=== PATIENT | male | born 2005 ===

== ENCOUNTER 2024-02-17 21:50 | Emergency (ER) | payer SELFPAY ==
[2024-02-17 23:05] LABS: BASOPHILS PERCENT AUTO 0.5 % (0.0-1.0); HEMATOCRIT 49.8 % (40.0-54.0); HEMOGLOBIN 16.7 g/dL (14.0-18.0); LYMPHOCYTES PERCENT AUTO 7.5 % (20.5-50.1); MEAN CORPUSCULAR HEMOGLOBIN 27.6 pg (27.0-34.0); MEAN CORPUSCULAR HGB CONC 33.5 g/dL (33.0-35.0); MEAN CORPUSCULAR VOLUME 82.5 fL (80-100); MONOCYTES PERCENT AUTO 5.3 % (2-8); NEUTROPHILS PERCENT AUTO 86.7 % (42.2-75.2); PLATELET COUNT,PLT 478 10^3/uL (150-450); RED BLOOD CELL COUNT 6.04 10^6/uL (4.6-6.2); WHITE BLOOD CELL COUNT,WBC 16.7 10^3/uL (5.0-10.0)
[2024-02-17] MEDS: Ondansetron 4 MG/2 ML SDV IVPUSH ONE (23:09)
[2024-02-17] MEDS: Sodium Chloride 0.9% 1,000 ML IV ONE (23:09)
[2024-02-17 23:31] LABS: A/G RATIO 0.9; ALANINE AMINOTRANSFERASE,ALT 60 U/L (16-63); ALKALINE PHOSPHATASE 249 U/L (46-116); ANION GAP 33.8 mEq/L (7-13); ASPARTATE AMNIOTRANSFERASE,AST 18 U/L (15-37); BILIRUBIN TOTAL 0.6 mg/dL (0.2-1.0); BLOOD UREA NITROGEN,BUN 15 mg/dL (7-18); BUN/CREATININE RATIO 8.3 (No establ ref range); CALCIUM 9.9 mg/dL (8.5-10.1); CARBON DIOXIDE,CO2 10 mmol/L (21-32); CHLORIDE,CL 96 mmol/L (98-107); EST CRCL DRUG DOSING (CG) 73.98 mL/min; LIPASE 19 U/L (16-77); MAGNESIUM 2.7 mg/dL (1.8-2.4); POTASSIUM,K 4.8 mmol/L (3.5-5.1); PROTEIN TOTAL,TP 10.5 g/dL (6.4-8.2); SODIUM,NA 135 mmol/L (136-145)
[2024-02-17 23:33] LABS: ESTIMATED GFR 55 mL/min (>=60); ETHANOL BLOOD MEDICAL < 3 mg/dL (0); GLUCOSE RANDOM 588 mg/dL (70-99)
[2024-02-18 00:11] LABS: AMPHETAMINES,URINE NEGATIVE (NEGATIVE); BARBITURATES,URINE NEGATIVE (NEGATIVE); BENZODIAZEPINE,URINE NEGATIVE (NEGATIVE); MDMA (ECSTASY), URINE NEGATIVE (NEGATIVE); METHADONE,URINE NEGATIVE (NEGATIVE); METHAMPHETAMINES,URINE NEGATIVE (NEGATIVE); OPIATES,URINE NEGATIVE (NEGATIVE); OXYCODONE,URINE NEGATIVE (NEGATIVE); PHENCYCLIDINE,URINE NEGATIVE (NEGATIVE); TCA,URINE NEGATIVE (NEGATIVE)
[2024-02-18 00:12] LABS: APPEARANCE,URINE CLEAR (CLEAR); BILIRUBIN,URINE SMALL (NEGATIVE); COLOR,URINE YELLOW (YELLOW); GLUCOSE,URINE 500 (NEGATIVE); KETONES,URINE >=160 (NEGATIVE); LEUKOCYTE ESTERASE,URINE NEGATIVE (NEGATIVE); NITRITE,URINE NEGATIVE (NEGATIVE); OCCULT BLOOD,URINE TRACE-INTACT (NEGATIVE); PH,URINE 5.5 (5.0-9.0); PROTEIN,URINE 30 (NEGATIVE); UROBILINOGEN,URINE 0.2 mg/dL (0.2-1.0)
[2024-02-18] MEDS ORDERED: 50% Dextrose in Water 50 ML Syringe IVPUSH PRN ×2 (00:15→01:14)
[2024-02-18] MEDS ORDERED: Glucagon,Human Recombinant 1 MG Vial IM PRN ×2 (00:15→01:14)
[2024-02-18] MEDS: Sodium Chloride 0.9% 1,000 ML IV ONE (00:18)
[2024-02-18 00:33] LABS: BASE EXCESS VENOUS -20.9 mmol/l ((-2)-(+3)); BICARBONATE,VENOUS 8 mmol/l (19-25); O2 DELIVERY DEVICE PARTIAL REBREATHER; O2 SATURATION VENOUS 33.5 % (60-80); PCO2 VENOUS 27 mmHg (41-51); PO2 VENOUS 24 mmHg (35-42)
[2024-02-18 00:35] LABS: PH,VENOUS 7.11 (7.31-7.41)
[2024-02-18 00:43] LABS: BACTERIA,URINE RARE /HPF (0-FEW/HPF); EPITHELIAL CELLS,URINE RARE /HPF (NOT SEEN); MUCUS,URINE FEW /LPF (NOT SEEN); RBC,URINE 0-5 /HPF (0-5); WBC,URINE NOT SEEN /HPF (0-5/HPF)
[2024-02-18] MEDS: Insulin Regular, Human 100 Units/ML 3 ML Vial IV ONE (00:49)
[2024-02-18 00:57] LABS: CORONAVIRUS COVID-19 NAA NEGATIVE (NEGATIVE); INFLUENZA A NAA NEGATIVE (NEGATIVE); INFLUENZA B NAA NEGATIVE (NEGATIVE); RESPIRATORY SYNCYTIAL VIR NAA NEGATIVE (NEGATIVE)
[2024-02-18] MEDS: Sodium Chloride 0.9% 2,000 ML IV ONE (02:08)
== END 2024-02-18 06:35 ==
LOC: DL.ED 21:50
DX: E11.10 Type 2 diabetes mellitus with ketoacidosis without coma (principal); Z86.16 Personal history of COVID-19
CPT/HCPCS: 0241U; 36415; 80053; 80305-QW; 80307; 81001; 82009; 82803; 82947; 83690; 83735; 85025; 96361; 96374; 99285; 99285-25; J1815-GY; J2405; J7030

== ENCOUNTER 2024-06-30 15:15 | Inpatient (IN) | payer MEDICAID ==
[2024-06-30] MEDS ORDERED: Sodium Chloride 0.9% 10 ML Syringe FLUSH PRN (15:39)
[2024-06-30] MEDS: Sodium Chloride 0.9% 10 ML Syringe FLUSH PRN (15:45)
[2024-06-30 15:47] LABS: BASOPHILS PERCENT AUTO 0.4 % (0.0-1.0); EOSINOPHILS PERCENT AUTO 0.2 % (1.0-3.0); HEMATOCRIT 50.5 % (40.0-54.0); HEMOGLOBIN 17.2 g/dL (14.0-18.0); LYMPHOCYTES PERCENT AUTO 18.6 % (20.5-50.1); MEAN CORPUSCULAR HEMOGLOBIN 28.9 pg (27.0-34.0); MEAN CORPUSCULAR HGB CONC 34.1 g/dL (33.0-35.0); MEAN CORPUSCULAR VOLUME 84.7 fL (80-100); MONOCYTES PERCENT AUTO 8.9 % (2-8); NEUTROPHILS PERCENT AUTO 71.9 % (42.2-75.2); PLATELET COUNT,PLT 326 10^3/uL (150-450); RED BLOOD CELL COUNT 5.96 10^6/uL (4.6-6.2); WHITE BLOOD CELL COUNT,WBC 9.4 10^3/uL (5.0-10.0)
[2024-06-30] MEDS: Sodium Chloride 0.9% 2,000 ML IV SCH (16:00)
[2024-06-30 16:18] LABS: INR 0.9 (0.9-1.2); PROTHROMBIN TIME 9.9 SEC (9.0-12.0)
[2024-06-30 16:21] LABS: A/G RATIO 0.7; ALANINE AMINOTRANSFERASE,ALT 27 U/L (16-63); ALBUMIN 4.2 g/dL (3.4-5.0); ALKALINE PHOSPHATASE 315 U/L (46-116); ANION GAP 35.2 mEq/L (7-13); ASPARTATE AMNIOTRANSFERASE,AST 15 U/L (15-37); BILIRUBIN TOTAL 0.6 mg/dL (0.2-1.0); BLOOD UREA NITROGEN,BUN 11 mg/dL (7-18); BUN/CREATININE RATIO 8.8 (No establ ref range); CHLORIDE,CL 101 mmol/L (98-107); CREATININE 1.25 mg/dL (0.70-1.30); EST CRCL DRUG DOSING (CG) 96.52 mL/min; GLUCOSE RANDOM 380 mg/dL (70-99); POTASSIUM,K 4.2 mmol/L (3.5-5.1); PROTEIN TOTAL,TP 9.9 g/dL (6.4-8.2); SODIUM,NA 139 mmol/L (136-145)
[2024-06-30 16:22] LABS: KETONES,BLOOD MODERATE-40 mg/dL
[2024-06-30 16:23] LABS: ESTIMATED GFR 84 mL/min (>=60)
[2024-06-30 16:24] LABS: CARBON DIOXIDE,CO2 7 mmol/L (21-32)
[2024-06-30] MEDS ORDERED: 50% Dextrose in Water 50 ML Syringe IVPUSH PRN (16:45)
[2024-06-30] MEDS ORDERED: Glucagon,Human Recombinant 1 MG Vial IM PRN (16:45)
[2024-06-30] MEDS: Dextrose 5%-0.9% NaCl 500 ML IV SCH (17:15)
[2024-06-30] MEDS ORDERED: Docusate Sodium 100 MG Cap PO PRN (19:08)
[2024-06-30] MEDS ORDERED: Polyethylene Glycol 3350 Powder 17 GM Packet PO PRN (19:08)
[2024-06-30] MEDS ORDERED: Ondansetron 4 MG/2 ML SDV IVPUSH PRN (19:08)
[2024-06-30] MEDS ORDERED: Sennosides/Docusate Sodium 50-8.6 MG Tab PO PRN (19:08)
[2024-06-30] MEDS ORDERED: Acetaminophen 325 MG Tab PO PRN (19:08)
[2024-06-30] MEDS ORDERED: Melatonin 3 MG Tab PO PRN (19:08)
[2024-06-30 19:25] LABS: O2 DELIVERY DEVICE ROOM AIR; O2 SATURATION VENOUS 68.6 % (60-80); PCO2 VENOUS 25 mmHg (41-51); PO2 VENOUS 41 mmHg (35-42)
[2024-06-30 19:26] LABS: BASE EXCESS VENOUS -19 mmol/l ((-2)-(+3)); BICARBONATE,VENOUS 9 mmol/l (19-25)
[2024-06-30 19:28] LABS: PH,VENOUS 7.17 (7.31-7.41)
[2024-06-30 19:43] LABS: ANION GAP 28.1 mEq/L (7-13); CALCIUM 9.2 mg/dL (8.5-10.1); CREATININE 1.08 mg/dL (0.70-1.30); EST CRCL DRUG DOSING (CG) 111.72 mL/min; POTASSIUM,K 3.1 mmol/L (3.5-5.1)
[2024-06-30 19:49] LABS: HEMOGLOBIN A1C 12.2 % (<5.7)
[2024-06-30] MEDS: Potassium Chloride 20 MEQ in Premix Bag 1 BAG IV ONE ×2 (20:17→23:40)
[2024-06-30] MEDS ORDERED: D5 1/2 NS w/ 10 mEq/L KCl 1,000 ML IV SCH (20:45)
[2024-06-30 21:09] LABS: O2 DELIVERY DEVICE ROOM AIR
[2024-06-30 21:11] LABS: BASE EXCESS VENOUS -19.4 mmol/l ((-2)-(+3)); BICARBONATE,VENOUS 8 mmol/l (19-25); O2 SATURATION VENOUS 95.3 % (60-80); PCO2 VENOUS 22 mmHg (41-51); PO2 VENOUS 81 mmHg (35-42)
[2024-06-30 21:14] LABS: PH,VENOUS 7.18 (7.31-7.41)
[2024-06-30] MEDS ORDERED: Dextrose 5%-0.45% NaCl 1,000 ML IV SCH (21:30)
[2024-06-30 21:37] LABS: ANION GAP 24.4 mEq/L (7-13); CALCIUM 8.8 mg/dL (8.5-10.1); CREATININE 0.99 mg/dL (0.70-1.30); EST CRCL DRUG DOSING (CG) 121.87 mL/min; POTASSIUM,K 3.4 mmol/L (3.5-5.1)
[2024-06-30 23:20] LABS: ANION GAP 23.2 mEq/L (7-13); CALCIUM 8.4 mg/dL (8.5-10.1); CREATININE 1.03 mg/dL (0.70-1.30); EST CRCL DRUG DOSING (CG) 117.14 mL/min; POTASSIUM,K 3.2 mmol/L (3.5-5.1)
[2024-06-30] MEDS: Lactated Ringers 1,000 ML IV SCH (23:40)
[2024-07-01 01:13] LABS: ANION GAP 24.2 mEq/L (7-13); CALCIUM 8.7 mg/dL (8.5-10.1); CREATININE 1.09 mg/dL (0.70-1.30); EST CRCL DRUG DOSING (CG) 110.69 mL/min; POTASSIUM,K 3.2 mmol/L (3.5-5.1)
[2024-07-01] MEDS: Potassium Chloride 20 MEQ in Premix Bag 1 BAG IV ONE ×2 (02:10→04:57)
[2024-07-01] MEDS: Potassium Chloride 10 MEQ in Premix Bag 1 BAG IV ONE (03:27)
[2024-07-01 03:36] LABS: ANION GAP 23.3 mEq/L (7-13); CALCIUM 8.4 mg/dL (8.5-10.1); CREATININE 0.94 mg/dL (0.70-1.30); EST CRCL DRUG DOSING (CG) 128.35 mL/min; POTASSIUM,K 3.3 mmol/L (3.5-5.1)
[2024-07-01 05:22] LABS: APPEARANCE,URINE CLEAR (CLEAR); BILIRUBIN,URINE MODERATE (NEGATIVE); COLOR,URINE YELLOW (YELLOW); GLUCOSE,URINE 500 (NEGATIVE); KETONES,URINE 80 (NEGATIVE); LEUKOCYTE ESTERASE,URINE NEGATIVE (NEGATIVE); NITRITE,URINE NEGATIVE (NEGATIVE); OCCULT BLOOD,URINE NEGATIVE (NEGATIVE); PROTEIN,URINE 100 (NEGATIVE); UROBILINOGEN,URINE 0.2 mg/dL (0.2-1.0)
[2024-07-01 05:27] LABS: BACTERIA,URINE RARE /HPF (0-FEW/HPF); EPITHELIAL CELLS,URINE RARE /HPF (NOT SEEN); RBC,URINE 0-5 /HPF (0-5); WBC,URINE 0-5 /HPF (0-5/HPF)
[2024-07-01 07:00] LABS: BASOPHILS PERCENT AUTO 0.4 % (0.0-1.0); EOSINOPHILS PERCENT AUTO 2.1 % (1.0-3.0); HEMATOCRIT 40.3 % (40.0-54.0); HEMOGLOBIN 13.6 g/dL (14.0-18.0); MEAN CORPUSCULAR HEMOGLOBIN 28.8 pg (27.0-34.0); MEAN CORPUSCULAR HGB CONC 33.7 g/dL (33.0-35.0); MEAN CORPUSCULAR VOLUME 85.2 fL (80-100); NEUTROPHILS PERCENT AUTO 56.5 % (42.2-75.2); PLATELET COUNT,PLT 310 10^3/uL (150-450); RED BLOOD CELL COUNT 4.73 10^6/uL (4.6-6.2); WHITE BLOOD CELL COUNT,WBC 7.7 10^3/uL (5.0-10.0)
[2024-07-01 07:16] LABS: A/G RATIO 0.75; BILIRUBIN TOTAL 0.5 mg/dL (0.2-1.0); BUN/CREATININE RATIO 5.2 (No establ ref range); CALCIUM 8.8 mg/dL (8.5-10.1); CREATININE 0.97 mg/dL (0.70-1.30); EST CRCL DRUG DOSING (CG) 124.38 mL/min; MAGNESIUM 1.8 mg/dL (1.8-2.4)
[2024-07-01 07:25] LABS: O2 DELIVERY DEVICE ROOM AIR
[2024-07-01 07:29] LABS: BICARBONATE,VENOUS 11 mmol/l (19-25); O2 SATURATION VENOUS 87.7 % (60-80); PCO2 VENOUS 26 mmHg (41-51); PO2 VENOUS 55 mmHg (35-42)
[2024-07-01 07:32] LABS: PH,VENOUS 7.24 (7.31-7.41)
[2024-07-01 07:41] LABS: ANION GAP 26.1 mEq/L (7-13); CALCIUM 8.4 mg/dL (8.5-10.1); CREATININE 0.92 mg/dL (0.70-1.30); EST CRCL DRUG DOSING (CG) 131.14 mL/min; POTASSIUM,K 3.1 mmol/L (3.5-5.1)
[2024-07-01] MEDS: Potassium Chloride 10 MEQ Tab.ER PO SCH (08:14)
[2024-07-01] MEDS: FLUoxetine 10 MG Cap PO SCH (08:14)
[2024-07-01] MEDS: cefTRIAXone 1 GM Vial IVPUSH SCH (08:15)
[2024-07-01] MEDS: Potassium Chloride 10 MEQ Tab.ER PO ONE ×3 (09:04→10:30)
[2024-07-01] MEDS: Insulin Glarg,Human.Rec.Analog 100 Unit/ML 10 ML Vial SUBCUT ONE ×2 (09:04→13:53)
[2024-07-01 09:32] LABS: ANION GAP 26.1 mEq/L (7-13); CALCIUM 8.4 mg/dL (8.5-10.1); CREATININE 0.94 mg/dL (0.70-1.30); EST CRCL DRUG DOSING (CG) 128.35 mL/min; POTASSIUM,K 3.1 mmol/L (3.5-5.1)
[2024-07-01 11:24] LABS: ANION GAP 24.4 mEq/L (7-13); CALCIUM 8.5 mg/dL (8.5-10.1); CREATININE 0.89 mg/dL (0.70-1.30); EST CRCL DRUG DOSING (CG) 135.56 mL/min; POTASSIUM,K 3.4 mmol/L (3.5-5.1)
[2024-07-01] MEDS: NS with KCl 40mEq 1,000 ML IV SCH (11:46)
[2024-07-01 13:21] LABS: ANION GAP 21.7 mEq/L (7-13); CALCIUM 8.4 mg/dL (8.5-10.1); CREATININE 0.9 mg/dL (0.70-1.30); EST CRCL DRUG DOSING (CG) 134.06 mL/min; POTASSIUM,K 3.7 mmol/L (3.5-5.1)
[2024-07-01] MEDS: Azithromycin 500 MG in Sodium Chloride 0.9% 250 ML IV SCH (13:53)
[2024-07-01 15:40] LABS: ANION GAP 19.1 mEq/L (7-13); CALCIUM 8.3 mg/dL (8.5-10.1); CREATININE 0.87 mg/dL (0.70-1.30); EST CRCL DRUG DOSING (CG) 138.68 mL/min; POTASSIUM,K 3.1 mmol/L (3.5-5.1)
[2024-07-01] MEDS: Insulin Lispro 100 Units/ML 3 ML Vial SUBCUT SCH (16:45)
[2024-07-01] MEDS: Insulin Glarg,Human.Rec.Analog 100 Unit/ML 10 ML Vial SUBCUT SCH (21:19)
[2024-07-02 06:45] LABS: BASOPHILS PERCENT AUTO 0.4 % (0.0-1.0); EOSINOPHILS PERCENT AUTO 2.1 % (1.0-3.0); HEMATOCRIT 39.6 % (40.0-54.0); HEMOGLOBIN 13.8 g/dL (14.0-18.0); LYMPHOCYTES PERCENT AUTO 33.1 % (20.5-50.1); MEAN CORPUSCULAR HEMOGLOBIN 29.1 pg (27.0-34.0); MEAN CORPUSCULAR HGB CONC 34.8 g/dL (33.0-35.0); MEAN CORPUSCULAR VOLUME 83.4 fL (80-100); MONOCYTES PERCENT AUTO 9.3 % (2-8); NEUTROPHILS PERCENT AUTO 55.1 % (42.2-75.2); PLATELET COUNT,PLT 293 10^3/uL (150-450); RED BLOOD CELL COUNT 4.75 10^6/uL (4.6-6.2); WHITE BLOOD CELL COUNT,WBC 5.7 10^3/uL (5.0-10.0)
[2024-07-02 07:03] LABS: A/G RATIO 0.78; ALBUMIN 3.1 g/dL (3.4-5.0); ANION GAP 23.7 mEq/L (7-13); BILIRUBIN TOTAL 0.5 mg/dL (0.2-1.0); BUN/CREATININE RATIO 4.7 (No establ ref range); CALCIUM 8.6 mg/dL (8.5-10.1); CREATININE 0.86 mg/dL (0.70-1.30); EST CRCL DRUG DOSING (CG) 140.29 mL/min; MAGNESIUM 1.6 mg/dL (1.8-2.4); POTASSIUM,K 2.7 mmol/L (3.5-5.1); PROTEIN TOTAL,TP 7.1 g/dL (6.4-8.2)
[2024-07-02] MEDS: Potassium Chloride 10 MEQ Tab.ER PO SCH ×2 (08:47→18:33)
[2024-07-02] MEDS: Magnesium Oxide 400 MG Tab PO SCH (08:47)
[2024-07-02] MEDS: Insulin Glarg,Human.Rec.Analog 100 Unit/ML 10 ML Vial SUBCUT SCH (12:01)
[2024-07-02] MEDS: Azithromycin 250 MG Tab PO SCH (15:06)
[2024-07-02 15:09] LABS: O2 DELIVERY DEVICE ROOM AIR
[2024-07-02 15:11] LABS: BASE EXCESS VENOUS -2.9 mmol/l ((-2)-(+3)); BICARBONATE,VENOUS 21 mmol/l (19-25); O2 SATURATION VENOUS 93.8 % (60-80); PCO2 VENOUS 37 mmHg (41-51); PH,VENOUS 7.38 (7.31-7.41); PO2 VENOUS 70 mmHg (35-42)
[2024-07-02 15:26] LABS: CALCIUM 8.6 mg/dL (8.5-10.1); CREATININE 1.03 mg/dL (0.70-1.30); EST CRCL DRUG DOSING (CG) 117.14 mL/min
[2024-07-03 07:27] LABS: A/G RATIO 0.78; ALBUMIN 3.1 g/dL (3.4-5.0); ANION GAP 18.5 mEq/L (7-13); BILIRUBIN TOTAL 0.4 mg/dL (0.2-1.0); BUN/CREATININE RATIO 6.2 (No establ ref range); CALCIUM 8.8 mg/dL (8.5-10.1); CREATININE 0.81 mg/dL (0.70-1.30); EST CRCL DRUG DOSING (CG) 148.95 mL/min; POTASSIUM,K 3.5 mmol/L (3.5-5.1); PROTEIN TOTAL,TP 7.1 g/dL (6.4-8.2)
[2024-07-03 07:44] LABS: BASOPHILS PERCENT AUTO 0.4 % (0.0-1.0); EOSINOPHILS PERCENT AUTO 2.6 % (1.0-3.0); HEMATOCRIT 38.8 % (40.0-54.0); HEMOGLOBIN 13.4 g/dL (14.0-18.0); LYMPHOCYTES PERCENT AUTO 32.5 % (20.5-50.1); MEAN CORPUSCULAR HGB CONC 34.5 g/dL (33.0-35.0); MONOCYTES PERCENT AUTO 12.2 % (2-8); NEUTROPHILS PERCENT AUTO 52.3 % (42.2-75.2); PLATELET COUNT,PLT 290 10^3/uL (150-450); RED BLOOD CELL COUNT 4.62 10^6/uL (4.6-6.2)
[2024-07-03] MEDS: Insulin Glarg,Human.Rec.Analog 100 Unit/ML 10 ML Vial SUBCUT SCH (09:33)
[2024-07-03] MEDS: Potassium Chloride 10 MEQ Tab.ER PO SCH (09:35)
[2024-07-04 07:03] LABS: BASOPHILS PERCENT AUTO 0.6 % (0.0-1.0); HEMATOCRIT 37.8 % (40.0-54.0); HEMOGLOBIN 13.1 g/dL (14.0-18.0); LYMPHOCYTES PERCENT AUTO 33.2 % (20.5-50.1); MEAN CORPUSCULAR HEMOGLOBIN 29.4 pg (27.0-34.0); MEAN CORPUSCULAR HGB CONC 34.7 g/dL (33.0-35.0); MEAN CORPUSCULAR VOLUME 84.9 fL (80-100); MONOCYTES PERCENT AUTO 10.9 % (2-8); NEUTROPHILS PERCENT AUTO 51.3 % (42.2-75.2); PLATELET COUNT,PLT 259 10^3/uL (150-450); RED BLOOD CELL COUNT 4.45 10^6/uL (4.6-6.2)
[2024-07-04 07:16] LABS: ALBUMIN 2.7 g/dL (3.4-5.0); ANION GAP 14.3 mEq/L (7-13); BILIRUBIN TOTAL 0.2 mg/dL (0.2-1.0); BUN/CREATININE RATIO 13.8 (No establ ref range); CALCIUM 8.7 mg/dL (8.5-10.1); CREATININE 0.58 mg/dL (0.70-1.30); EST CRCL DRUG DOSING (CG) 208.02 mL/min; POTASSIUM,K 3.3 mmol/L (3.5-5.1); PROTEIN TOTAL,TP 6.4 g/dL (6.4-8.2)
[2024-07-04 07:19] LABS: A/G RATIO 0.73
[2024-07-04] MEDS: Potassium Chloride 10 MEQ Tab.ER PO SCH (08:11)
[2024-07-04] MEDS: Insulin Glarg,Human.Rec.Analog 100 Unit/ML 10 ML Vial SUBCUT ONE (08:15)
== END 2024-07-04 09:30 | disposition home or self-care (01) | DRG 639 ==
LOC: DL.ED 15:15 → DL.MS 18:35
PROVIDERS: ADMIT Internal Medicine; ATTEND Internal Medicine
DX: E10.10 Type 1 diabetes mellitus with ketoacidosis without coma (principal); F41.9 Anxiety disorder, unspecified; F32.A Depression, unspecified; J06.9 Acute upper respiratory infection, unspecified; E87.6 Hypokalemia; E83.42 Hypomagnesemia; E88.09 Other disorders of plasma-protein metabolism, not elsewhere classified; R79.89 Other specified abnormal findings of blood chemistry; Z86.16 Personal history of COVID-19; Z91.199 Patient's noncompliance with other medical treatment and regimen due to unspecified reason
CPT/HCPCS: 36415; 71045; 80048; 80053; 81001; 82009; 82800; 82803; 82947; 83036; 83735; 84100; 84132; 84484; 85025; 85610; 93005; 93010; 96360; 96361; 99223; 99232; 99233; 99238; 99285-25; 99291; A9270-GY; J0456; J0696; J1815-GY; J3480; J7030; J7042; J7050; J7120

== ENCOUNTER 2024-08-31 18:26 | Emergency (ER) | payer MEDICAID ==
[2024-08-31 19:02] LABS: BASOPHILS PERCENT AUTO 0.5 % (0.0-1.0); EOSINOPHILS PERCENT AUTO 0.1 % (1.0-3.0); HEMATOCRIT 48.2 % (40.0-54.0); HEMOGLOBIN 15.9 g/dL (14.0-18.0); MEAN CORPUSCULAR HEMOGLOBIN 28.8 pg (27.0-34.0); MEAN CORPUSCULAR VOLUME 87.2 fL (80-100); MONOCYTES PERCENT AUTO 4.6 % (2-8); NEUTROPHILS PERCENT AUTO 88.8 % (42.2-75.2); PLATELET COUNT,PLT 391 10^3/uL (150-450); RED BLOOD CELL COUNT 5.53 10^6/uL (4.6-6.2); WHITE BLOOD CELL COUNT,WBC 15.1 10^3/uL (5.0-10.0)
[2024-08-31 19:05] LABS: BICARBONATE,VENOUS 22 mmol/l (19-25); O2 DELIVERY DEVICE ROOM AIR; O2 SATURATION VENOUS 38.8 % (60-80); PCO2 VENOUS 44 mmHg (41-51); PH,VENOUS 7.32 (7.31-7.41); PO2 VENOUS 29 mmHg (35-42)
[2024-08-31 19:06] LABS: BASE EXCESS VENOUS -4 mmol/l ((-2)-(+3))
[2024-08-31] MEDS: Sodium Chloride 0.9% 1,000 ML IV ONE (19:10)
[2024-08-31 19:27] LABS: A/G RATIO 0.9; ALANINE AMINOTRANSFERASE,ALT 24 U/L (16-63); ALBUMIN 4.4 g/dL (3.4-5.0); ALKALINE PHOSPHATASE 189 U/L (46-116); ANION GAP 17.7 mEq/L (7-13); ASPARTATE AMNIOTRANSFERASE,AST 21 U/L (15-37); BILIRUBIN TOTAL 0.5 mg/dL (0.2-1.0); BLOOD UREA NITROGEN,BUN 13 mg/dL (7-18); CARBON DIOXIDE,CO2 25 mmol/L (21-32); CHLORIDE,CL 103 mmol/L (98-107); CREATININE 0.81 mg/dL (0.70-1.30); GLUCOSE RANDOM 156 mg/dL (70-99); POTASSIUM,K 3.7 mmol/L (3.5-5.1); PROTEIN TOTAL,TP 9.3 g/dL (6.4-8.2); SODIUM,NA 142 mmol/L (136-145)
[2024-08-31 19:36] LABS: ESTIMATED GFR 129 mL/min (>=60)
[2024-08-31 20:05] LABS: APPEARANCE,URINE CLEAR (CLEAR); BILIRUBIN,URINE MODERATE (NEGATIVE); COLOR,URINE YELLOW (YELLOW); GLUCOSE,URINE NEGATIVE (NEGATIVE); KETONES,URINE 80 (NEGATIVE); LEUKOCYTE ESTERASE,URINE NEGATIVE (NEGATIVE); NITRITE,URINE NEGATIVE (NEGATIVE); OCCULT BLOOD,URINE NEGATIVE (NEGATIVE); PROTEIN,URINE 100 (NEGATIVE); UROBILINOGEN,URINE 0.2 mg/dL (0.2-1.0)
[2024-08-31 20:27] LABS: BACTERIA,URINE FEW /HPF (0-FEW/HPF); EPITHELIAL CELLS,URINE FEW /HPF (NOT SEEN); RBC,URINE 0-5 /HPF (0-5); WBC,URINE 0-5 /HPF (0-5/HPF)
[2024-08-31 20:28] LABS: HYALINE CASTS,URINE FEW; MUCUS,URINE MANY /LPF (NOT SEEN)
== END 2024-08-31 20:20 | disposition home or self-care (01) ==
LOC: DL.ED 18:26
DX: R10.13 Epigastric pain (principal); E10.9 Type 1 diabetes mellitus without complications; Z79.4 Long term (current) use of insulin; Z79.899 Other long term (current) drug therapy; Z86.16 Personal history of COVID-19
CPT/HCPCS: 36415; 80053; 81001; 82803; 82947; 85025; 96360; 99283; 99284; J7030